=== PATIENT | female | born 1950 | race Caucasian/White ===

== ENCOUNTER 2019-11-15 02:11 | Emergency (ER) | payer MEDICARE ==
[~2019-11-15] VITALS: Ht 160 cm; Wt 77.0 kg
[2019-11-15 04:45] VITALS: BP 135/66
== END 2019-11-15 05:10 | disposition home or self-care (01) ==
LOC: ER 02:11
DX: F10.129 Alcohol abuse with intoxication, unspecified (principal); I49.9 Cardiac arrhythmia, unspecified; Z98.890 Other specified postprocedural states; Y90.9 Presence of alcohol in blood, level not specified
CPT/HCPCS: 71045; 93005; 99283